=== PATIENT | male | born 1970 | race Caucasian/White ===

== ENCOUNTER 2020-02-07 00:27 | Emergency (ER) | payer OTHER ==
[~2020-02-07] VITALS: Ht 170.2 cm; Wt 77.3 kg
--- NOTE | 2020-02-07 01:22 | NUR ---
PT REPORTS "10/10 PAIN. I FEEL LIKE I'M GONNA PUKE FROM IT." SUNDAR HUTSON AWARE. NO NEW ORDERS. WILL CONTINUE TO MONITOR
[2020-02-07] MEDS ORDERED: ketorolac trometh. 30mg/ml inj. IV ONE (01:30)
[2020-02-07] MEDS ORDERED: normal saline 1000ML IV soln IVB ONE (01:30)
[2020-02-07] MEDS ORDERED: meperidine/PF 50mg/ml syringe IV ONE (01:30)
[2020-02-07] MEDS ORDERED: sildenafil citrate 20mg tablet PO SCH (01:35)
[2020-02-07] MEDS ORDERED: ondansetron/PF 4mg/2ml inj IV ONE (01:50)
[2020-02-07 02:04] LABS: BASOPHILS # (AUTO) 0.1 X10'3 (0-0.2); BASOPHILS % (AUTO) 0.9 % (0-1); EOSINOPHILS # (AUTO) 0.2 X10'3 (0-0.9); EOSINOPHILS % (AUTO) 1.9 % (0-6); HEMATOCRIT 47.3 % (42.0-52.0); HEMOGLOBIN 16.4 g/dl (14.0-17.9); LYMPHOCYTES # (AUTO) 2.2 X10'3 (1.1-4.8); LYMPHOCYTES % (AUTO) 21.3 % (21-51); MEAN CORPUSCULAR HEMOGLOBIN 30.8 PG (27.0-31.0); MEAN CORPUSCULAR HGB CONC 34.7 g/dL (33.0-36.5); MEAN CORPUSCULAR VOLUME 88.9 FL (78-98); MEAN PLATELET VOLUME 7.7 FL (7.4-10.4); MONOCYTES % (AUTO) 9.6 % (2-12); NEUTROPHILS % (AUTO) 66.3 % (42-75); PLATELET COUNT 350 X10'3 (140-440); RED BLOOD COUNT 5.32 X10'6 (4.70-6.10); RED CELL DISTRIBUTION WIDTH 13.2 % (11.5-14.5); WHITE BLOOD COUNT 10.5 X10'3 (4.5-11.0)
[2020-02-07 02:05] LABS: ALANINE AMINOTRANSFERASE 38 U/L (12-78); ALBUMIN/GLOBULIN RATIO 1.1 (1.1-1.5); ALKALINE PHOSPHATASE 100 IU/L (46-116); ANION GAP 4 (8-16); ASPARTATE AMINO TRANSFERASE 20 U/L (10-37); BILIRUBIN,TOTAL 0.3 MG/DL (0.1-1.0); BLOOD UREA NITROGEN 23 MG/DL (7-18); BUN/CREATININE RATIO 12.7 (5.4-32.0); CALCIUM 9.1 MG/DL (8.5-10.1); CHLORIDE 105 MMOL/L (99-107); CREATININE 1.81 MG/DL (0.60-1.10); GLUCOSE 125 MG/DL (70-104); POTASSIUM 4.1 MMOL/L (3.5-5.1); SODIUM 141 MMOL/L (135-145); TOTAL CARBON DIOXIDE 31.8 MMOL/L (24-32); TOTAL PROTEIN 7.7 G/DL (6.4-8.2); eGFR 40 ML/MIN
[2020-02-07] MEDS ORDERED: SILD25TA PO (03:17)
[2020-02-07] MEDS ORDERED: HYDR-4383 PO (03:17)
[2020-02-07 03:32] LABS: CLARITY,URINE CLEAR (Clear); COLOR,URINE YELLOW (Yellow); GLUCOSE, URINE NEGATIVE (Neg); KETONES,URINE NEGATIVE (Neg); LEUKOCYTE ESTERASE ,URINE NEGATIVE (Neg); NITRITES, URINE NEGATIVE (Neg); OCCULT BLOOD,URINE NEGATIVE (Neg); PH,URINE 6.5 (4.8-8.0); PROTEIN,URINE NEGATIVE (Neg); UROBILINOGEN,URINE 0.2 E.U/dL (0.2-1.0)
[2020-02-07 03:35] LABS: UA COLLECTION TYPE CLN CATCH MIDSTREAM
[2020-02-07] MEDS ORDERED: morphine 4 MG/ML inj SYRINge IV ONE (03:50)
--- NOTE | 2020-02-07 03:50 | NUR ---
PER EDMD HUTSON, TOOK VERBAL ORDER FOR MORPHINE 4MG IV X1 DOSE NOW BEFORE PT DISCHARGES
[2020-02-07 04:02] VITALS: BP 167/80
== END 2020-02-07 03:55 | disposition home or self-care (01) ==
LOC: ER 00:29
DX: N23 Unspecified renal colic (principal); N19 Unspecified kidney failure; R11.0 Nausea; Z79.899 Other long term (current) drug therapy
CPT/HCPCS: 36415; 80053; 81003; 85025; 96374; 96375; 99284; J1885; J2175; J2405; J7030